=== PATIENT | male | born 1940 | race Hispanic/Latino ===

== ENCOUNTER 2021-10-11 06:19 | Day surgery (SDC) | payer OTHER ==
[2021-10-09 09:35] LABS: Absolute Lymphocytes (CBC) 2.8 K/uL (0.7-4.9); Hematocrit 44.4 % (39.6-49.0); Lymphocytes % 45.5 % (15.3-44.8); MPV 8.2 fL (7.6-11.3); RBC Red Blood Cell Count 5.11 M/uL (4.33-5.43)
[2021-10-09 09:51] LABS: Protime INR 1.01
[2021-10-11] MEDS ORDERED: NA CHLORIDE 0.9% 50 ML ONE (06:35)
[2021-10-11] MEDS ORDERED: NA CHLORIDE 0.9% 1,000 ML ONE (06:35)
[2021-10-11] MEDS ORDERED: CEFAZOLIN SODIUM 1 GM/VIAL ONE (06:35)
[2021-10-11] MEDS ORDERED: FENTANYL CITR 100 MCG/2 ML ONE (07:00)
[2021-10-11] MEDS ORDERED: dexAMETHasone 10 MG/ML VIAL ONE ×2 (07:00→07:14)
[2021-10-11] MEDS ORDERED: propofoL 200 MG/20 ML VIAL IV ONE ×2 (07:00→08:16)
[2021-10-11] MEDS ORDERED: KETOROLAC 30 MG/ML INJ ONE (07:01)
[2021-10-11] MEDS ORDERED: LIDOCAINE 2% MPF 5 ML VIAL ONE (07:01)
[2021-10-11] MEDS ORDERED: ONDANSETRON 4 MG/2 ML VIAL ONE (07:01)
[2021-10-11 07:03] VITALS: O2SAT 98
[2021-10-11] MEDS ORDERED: LIDOCAINE 1% MPF 5 ML VIAL ONE (07:13)
[2021-10-11] MEDS ORDERED: SODIUM BICARB 50 MEQ/50ML VIAL ONE (07:14)
[2021-10-11] MEDS ORDERED: LIDOCAINE 1% 20 ML MDV ONE (07:21)
[2021-10-11] MEDS ORDERED: BUPIVACAINE 0.5% PF 10 ML VIAL ONE (07:21)
[2021-10-11] MEDS ORDERED: dexAMETHasone 4 MG/ML VIAL ONE (07:21)
[2021-10-11] MEDS ORDERED: Mastisol Adhesive Liq ONE (07:22)
[2021-10-11] MEDS ORDERED: NS 0.9% VIAL 10 ML ONE (08:20)
[2021-10-11] MEDS ORDERED: Phenylephrine HCl 10 MG/ML 1 ML VIAL ONE (08:20)
[2021-10-11] MEDS ORDERED: Ringers Lactate 1,000 ML IV ONE (08:23)
[2021-10-11] MEDS ORDERED: HYDROCODONE/APAP 10/325 TAB ONE (10:15)
[2021-10-11 10:29] VITALS: BP 104/64; TEMP 97.1
== END 2021-10-11 10:40 | disposition home or self-care (01) ==
LOC: OR 06:19
PROVIDERS: ATTEND Podiatrist Foot Surgery
PROC: 0QBN0ZZ Excision of Right Metatarsal, Open Approach (ICD-10-PCS; 2021-10-11)
PROC: 0QBQ0ZZ Excision of Right Toe Phalanx, Open Approach (ICD-10-PCS; principal; 2021-10-11 07:30)
DX: M21.611 Bunion of right foot (principal); M25.774 Osteophyte, right foot; Z20.822 Contact with and (suspected) exposure to COVID-19
CPT/HCPCS: 28292; 28104; 85025; 36415; 85610; 82947; 88304; 88311; 85730; U0003; J2704 ×2; J2370; J3010; J1100 ×2; J7120; J7030; J2405; J0690; 88305